=== PATIENT | female | born 1985 | race Caucasian/White ===

== ENCOUNTER 2023-11-05 12:36 | Emergency (ER) | payer BC ==
[2023-11-05] MEDS: Famotidine 20 MG/2 ML SDV IVPUSH ONE (13:26)
[2023-11-05] MEDS: Sodium Chloride 0.9% 2.5 ML Syringe FLUSH PRN (13:27)
[2023-11-05] MEDS: Metoclopramide 10 MG/2 ML SDV IVPUSH ONE ×2 (13:27→16:37)
[2023-11-05] MEDS: Sodium Chloride 0.9% 10 ML Syringe FLUSH PRN (13:27)
[2023-11-05] MEDS: Sodium Chloride 0.9% 1,000 ML IV ONE ×2 (13:27→14:54)
[2023-11-05 13:30] LABS: BASOPHILS ABSOLUTE AUTO 0.03 K/uL (0.00-0.20); BASOPHILS PERCENT AUTO 0.2 % (0.0-1.0); EOSINOPHILS ABSOLUTE AUTO 0.04 K/uL (0.00-0.45); EOSINOPHILS PERCENT AUTO 0.3 % (0.0-6.0); HEMATOCRIT 45.7 % (37.0-47.0); HEMOGLOBIN 15.4 g/dL (12.0-16.0); IMMATURE GRAN ABSOLUTE AUTO 0.05 K/uL (0.00-0.05); IMMATURE GRAN PERCENT AUTO 0.3 % (0.0-0.4); LYMPHOCYTES ABSOLUTE AUTO 1.66 K/uL (1.00-4.80); LYMPHOCYTES PERCENT AUTO 10.5 % (24.0-44.0); MEAN CORPUSCULAR HEMOGLOBIN 28.1 pg (28.0-32.0); MEAN CORPUSCULAR HGB CONC 33.7 g/dL (32.0-36.0); MEAN CORPUSCULAR VOLUME 83.4 fL (83.0-99.0); MEAN PLATELET VOLUME 8.6 fL (9.4-12.3); MONOCYTES ABSOLUTE AUTO 0.85 K/uL (0.00-0.80); MONOCYTES PERCENT AUTO 5.4 % (0.0-8.0); NEUTROPHILS ABSOLUTE AUTO 13.19 K/uL (1.80-7.70); NEUTROPHILS PERCENT AUTO 83.3 % (41.0-71.0); PLATELET COUNT,PLT 468 K/uL (150-400); RED BLOOD CELL COUNT 5.48 M/uL (4.10-5.30); WHITE BLOOD CELL COUNT,WBC 15.82 K/uL (3.9-11.3)
[2023-11-05 14:00] LABS: A/G RATIO 0.6 (0.9-1.6); ALBUMIN 3.5 g/dL (3.4-5.0); BILIRUBIN TOTAL 0.4 mg/dL (0.2-1.0); CALCIUM 9.6 mg/dL (8.5-10.1); CARBON DIOXIDE,CO2 23.6 mmol/L (21.0-32.0); EST CRCL DRUG DOSING (CG) 65.87 mL/min; PROTEIN TOTAL,TP 9.6 g/dL (6.4-8.2)
[2023-11-05 14:04] LABS: POTASSIUM,K 3.6 mmol/L (3.5-5.1)
[2023-11-05 16:51] VITALS: BP 131/80; PULSE 99
== END 2023-11-05 16:49 | disposition home or self-care (01) ==
LOC: MW.ED 12:36
DX: R11.2 Nausea with vomiting, unspecified (principal); Z88.5 Allergy status to narcotic agent; Z79.84 Long term (current) use of oral hypoglycemic drugs; Z79.899 Other long term (current) drug therapy; Z75.8 Other problems related to medical facilities and other health care
CPT/HCPCS: 36415; 80053; 83690; 84703; 85025; 96361; 96374; 96375; 96376; 99284; J2765; J3490; J7030

== ENCOUNTER 2024-07-09 06:45 | Day surgery (SDC) | payer BC ==
[~2024-07-09 06:45] MED LIST: Scopalamine 1mg/3day Transdermal Patch TOP ONE
[2024-07-09] MEDS: Lactated Ringers 1,000 ML IV SCH (07:16)
[2024-07-09] MEDS: Scopalamine 1mg/3day Transdermal Patch TOP ONE (07:17)
[2024-07-09] MEDS ORDERED: fentaNYL 50 MCG/ML SDV IVPUSH PRN (07:26)
[2024-07-09] MEDS ORDERED: Ondansetron 4 MG/2 ML SDV IVPUSH PRN (07:26)
[2024-07-09] MEDS ORDERED: Albuterol 0.083% 2.5 MG/3 ML Neb Soln NEB PRN (07:26)
[2024-07-09] MEDS ORDERED: Naloxone 0.4 MG/ML SDV IVPUSH PRN (07:26)
[2024-07-09] MEDS ORDERED: Phenylephrine HCl In 0.9% NaCl 1 MG/10 ML Syringe IVPUSH PRN (07:26)
[2024-07-09] MEDS ORDERED: Metoclopramide 10 MG/2 ML SDV IVPUSH PRN (07:26)
[2024-07-09] MEDS ORDERED: Morphine 2 MG/ML SYRINGE IVPUSH PRN (07:26)
[2024-07-09] MEDS ORDERED: HYDROmorphone 1 MG/ML Syringe IVPUSH PRN (07:26)
[2024-07-09] MEDS ORDERED: propofoL 500 MG/50 ML 50 ML ONE (07:28)
[2024-07-09] MEDS ORDERED: Propofol 200 MG/20 ML SDV ONE (07:29)
[2024-07-09] MEDS ORDERED: fentaNYL 100 MCG/2 ML SDV ONE ×2 (07:29→08:11)
[2024-07-09] MEDS ORDERED: Ketamine HCL/NACL, ISO-OSM 50 MG/5 ML Syringe ONE (07:30)
[2024-07-09] MEDS ORDERED: Ondansetron 4 MG/2 ML SDV ONE (07:35)
[2024-07-09] MEDS ORDERED: Dexamethasone 4 MG/ML 5 ML MDV ONE (07:35)
[2024-07-09] MEDS ORDERED: Midazolam 1 MG/ML 2 ML SDV ONE (07:35)
[2024-07-09] MEDS ORDERED: Famotidine 20 MG/2 ML SDV ONE (07:37)
[2024-07-09] MEDS ORDERED: Ketorolac 30 MG/ML SDV ONE (08:20)
[2024-07-09 09:28] VITALS: BP 129/75; PULSE 55
== END 2024-07-09 09:40 | disposition home or self-care (01) ==
LOC: MW.SDS 06:45
PROVIDERS: ATTEND Obstetrics & Gynecology
DX: N84.0 Polyp of corpus uteri (principal); E28.2 Polycystic ovarian syndrome; D35.2 Benign neoplasm of pituitary gland; F41.9 Anxiety disorder, unspecified; Z79.899 Other long term (current) drug therapy
CPT/HCPCS: 36415; 58558; 84703; A9270; J0131; J1100; J1885; J2405; J2704; J3010; J3490; J7120; 00952; 85025; J2250